=== PATIENT | female | born 1945 | race Caucasian/White ===

== ENCOUNTER 2017-07-10 10:21 | Emergency (ER) | payer MEDICAID ==
[~2017-07-10] VITALS: Ht 154.9 cm; Wt 78.0 kg
[~2017-07-10 10:21] MED LIST: ALENDRONATE SOD70 M2 PO; ANT12.5 PO; APAP/HYDROCODON1 T13 PO; COL100 PO; D-20001 TAB PO; FLO4 PO; IBUPROFEN400 MG PO; LAC PO; LEVAQUIN750 MG PO; LISINOPRIL2.5 MG; MAC100 PO; PRILOSEC20 MG; RANITIDINE HCL150 M1 PO; VITAMIN D32000 I2 PO
[2017-07-10 10:26] VITALS: Ht 154.9 cm; Wt 78.0 kg
[2017-07-10 12:24] VITALS: BP 108/68
== END 2017-07-10 13:15 | disposition home or self-care (01) ==
LOC: ED 10:21
DX: B34.9 Viral infection, unspecified (principal); R07.89 Other chest pain; I10 Essential (primary) hypertension; E78.00 Pure hypercholesterolemia, unspecified
CPT/HCPCS: J1885

== ENCOUNTER 2018-04-19 18:08 | Emergency (ER) | payer MEDICAID ==
[~2018-04-19] VITALS: Ht 152.4 cm; Wt 78.0 kg
[2018-04-19 18:31] VITALS: Ht 152.4 cm; Wt 78.0 kg
[2018-04-19 19:03] LABS: BASOPHIL % 0.7 % (0-2); PLATELET COUNT 223 x10^3mcL (130-400); RED CELL DISTRIBUTION WIDTH 14.7 % (11.5-14.5)
[2018-04-19 19:13] LABS: CALCIUM 9.4 mg/dL (8.5-10.1); CHLORIDE SERUM 106 mmol/L (98-107); CREATININE SERUM 0.8 mg/dL (0.6-1.0); GLUCOSE SERUM 99 mg/dL (74-106); POTASSIUM SERUM 4.3 mmol/L (3.5-5.1); SODIUM SERUM 143 mmol/L (136-145)
[2018-04-19 19:22] LABS: ALKALINE PHOSPHATASE 76 U/L (46-116); ALT/SGPT 21 U/L (14-59); AST/SGOT 18 U/L (15-37); BILIRUBIN TOTAL 0.28 mg/dL (0.20-1.00); PHOSPHOROUS 3.5 mg/dL (2.5-4.9); TOTAL PROTEIN, SERUM 7.9 g/dL (6.4-8.2)
[2018-04-19 19:28] LABS: CHOLESTEROL 223 mg/dL (<200); HDL CHOLESTEROL 69 mg/dL (40-60)
[2018-04-19 20:02] VITALS: BP 114/75
== END 2018-04-19 20:02 | disposition home or self-care (01) ==
LOC: ED 18:08
PROVIDERS: Emergency Medicine
DX: R07.89 Other chest pain (principal); M54.6 Pain in thoracic spine; I10 Essential (primary) hypertension; E78.00 Pure hypercholesterolemia, unspecified
CPT/HCPCS: 36415; J1885